=== PATIENT | male | born 1965 | race Caucasian/White ===

== ENCOUNTER 2019-06-02 18:30 | Inpatient (IN) ==
[2019-06-02 19:54] LABS: BASO# 0.03 X1000 (0.0-0.2); BASO% 0.4 % (0.0-0.8); EOS# 0.09 X1000 (0.0-0.7); EOS% 1.2 % (0.0-10.0); HEMATOCRIT 43.3 % (42.0-52.0); HEMOGLOBIN 13.4 g/dL (14.0-18.0); IMM GRAN# 0.02 X1000 (0.0-0.04); IMM GRAN% 0.3 % (0.0-0.5); LYMPH# 1.47 X1000 (1.2-3.4); LYMPH% 19.1 % (20.5-51.1); MCH 28.3 PG (27-31); MCHC 30.9 g/dL (33-37); MCV 91.5 FL (81-99); MONO# 0.62 X1000 (0.11-0.59); MPV 9.8 FL (7.4-10.4); NEUT# 5.48 X1000 (1.4-6.5); PLT 267 X1000 (130-400); RBC 4.73 XMIL (4.7-6.1); RDW 15.2 % (11.5-14.5); WBC 7.71 X1000 (4.8-10.8)
[2019-06-02 19:59] LABS: INR 1.18; PROTIME 15.2 Seconds (11.0-16.0)
[2019-06-02 20:05] LABS: ALB/GLOB RATIO 1.6; ALBUMIN 3.8 g/dL (3.5-5.0); CALCIUM 8.8 mg/dL (8.8-10.2); CREATININE 1.3 mg/dL (0.7-1.2); POTASSIUM 4.3 mmol/L (3.5-5.1); TOTAL BILIRUBIN 0.81 mg/dL (0.20-1.00); TOTAL PROTEIN 6.2 g/dL (6.3-8.3)
--- NOTE | 2019-06-02 20:21 | Diag Imaging Result Doc PS360 ---
EXAM: CHEST-2 VIEWS INDICATION: dyspnea TECHNIQUE: 2 views COMPARISON: 02/24/2019 FINDINGS: The central vasculature is prominent suggesting pulmonary venous congestion. No discrete airspace consolidation can be identified. There is blunting of the posterior costophrenic angle suggesting likely trace effusions. There is at least mild cardiomegaly. IMPRESSION: Mild cardiomegaly and suggestion of pulmonary venous congestion. Electronically signed by Benjamin Grande 06/02/2019 8:19 PM
[2019-06-02 20:33] LABS: CK INDEX 2.5 (0.0-2.5); CK-MB 11.44 ng/mL (0.0-5.0)
[2019-06-02] MEDS ORDERED: LASIX IV ONE (20:41)
--- NOTE | 2019-06-02 20:52 | PROVIDER DOCUMENTATION ---
This chart was entered by Siomara Cantu Scribe, acting as scribe for Daria Bautista CRNP. HPI-Respiratory General - General Chief Complaint: Edema Stated Complaint: SWELLING IN FEET Time Seen by Provider: 06/02/19 18:35 Source: patient Allergies/Adverse Reactions: Patient Allergies Allergy/AdvReac Type Severity Reaction Status Date / Time No Known Allergies Allergy Verified 02/24/19 08:16 Home Medications: Home Medication List Medication Instructions Recorded Confirmed Last Taken Type Hydrocodone/APAP 5 mg/325 mg 1 each PO Q6H PRN PRN #12 tablet 08/19/16 Unknown Rx [[place]-5] Ibuprofen [Motrin] 800 mg PO Q8H PRN PRN #20 tablet 08/19/16 Unknown Rx Omeprazole [Prilosec] 20 mg PO DAILY@0700 #20 capsule 08/19/16 Unknown Rx Clindamycin [Cleocin] 150 mg PO Q6HR #30 cap 04/11/18 Unknown Rx - History of Present Illness-Resp Nature of Presenting Problem: 54 y/o male with history of CHF and COPD presents to the ED with complaint of bilateral lower extremity edema and shortness of breath. The patient states he was admitted to [facility] in March and diagnosed with pneumonia, CHF, and COPD and he states ejection fraction of 20%. He was given a month supply of medications at discharge including antibiotic, steroids, lasix, and inhaler but has been unable to refill these since that time due to living in his truck and no income at this time. He also complains of nausea daily which is chronic and improves with eating and cough with occasional yellow sputum production. Quality of Pain: reports: none Onset/Duration: reports: gradual Timing: reports: getting worse Cough Quality/Degree: reports: productive cough, sputum (yellow) Current Respiratory Medication Therapy: Initiated see nurses note Associated Symptoms: reports: cough, shortness of breath. denies: fever/chills, flu-like symptoms Recently seen or treated by another doctor?: No Review of Systems - Adult - REVIEW OF SYSTEMS - ADULT Constitutional: denies: chills, fever, weight gain Eyes: reports: no symptoms reported Ears, Nose, Mouth & Throat: reports: no symptoms reported Cardiovascular: reports: edema (bilateral). denies: chest pain, palpitations, syncope Respiratory: reports: cough, shortness of breath, other (bilateral edema). denies: hemoptysis Gastrointestinal: denies: diarrhea, nausea, vomiting Genitourinary: reports: no symptoms reported Musculoskeletal: reports: no symptoms reported Integumentary: reports: no symptoms reported Neurological: reports: no symptoms reported Psychiatric: reports: no symptoms reported Endocrine: reports: no symptoms reported Hematologic/Lymphatic: reports: no symptoms reported Allergic/Immunologic: reports: no symptoms reported All Other Systems: Reviewed and Negative Past History - Adult - PAST MEDICAL HISTORY-ADULT Review of Records: reports: Old Records Reviewed, Nursing Assessment Review, Medications Reviewed Major Childhood Illnesses: reports: denies history Cardiovascular: reports: denies history Respiratory: reports: denies history Gastrointestinal: reports: denies history Obstetrical/Gynecological: reports: denies history Genitourinary: reports: denies history Musculoskeletal: reports: denies history Neurological: reports: denies history Endocrine/Immune: reports: denies history Other Conditions: reports: denies history - IMMUNIZATION STATUS Childhood Immunizations: See Nurse Assessment Flu Vaccine: See Nurse Assessment - FAMILY HISTORY Family History: reviewed, not pertinent - SOCIAL HISTORY Smoking: cigarettes, less than 1 pack/day Provider spent 3-5 mins advising pt. on dangers of tobacco.: Discussed manners to quit use, and f/u contacts for add'l counseling. Substance Use: alcohol Alcohol Use Frequency: occasionally Living Situation: other (lives in truck alone in [place]) Physical Exam-General - PHYSICAL EXAM-ADULT Initial Vital Signs Reviewed: Yes - CONSTITUTIONAL General Appearance: alert, no apparent distress - HEAD, EARS, NOSE, MOUTH & THROAT HENMT: normocephalic/atraumatic, moist mucous membranes - NECK Neck: full range of motion, supple - RESPIRATORY Respiratory: normal breath sounds, no respiratory distress, no accessory muscle use, rhonchi (right and left upper lobes), wheezing (bilateral expiratory). negative: crackles - CARDIOVASCULAR Cardiovascular: regular rate, rhythm, no JVD, no murmur - GASTROINTESTINAL (ABDOMEN) Abdominal Exam: normal bowel sounds, non tender, soft. negative: distended, guarding - MUSCULOSKELETAL Extremity: pelvis stable, erythema (bilateral lower extremities), swelling (bilateral lower extremity edema with fluid pockets base of right great toe, right anterolateral ankle, and left anteromedial ankle), tenderness (bilateral lower extremities), other (good distal pulses). negative: deformity, pulse deficit Peripheral Pulses: radial (R): 2+, radial (L): 2+ - SKIN Integumentary: erythema (bilateral lower extremities), tenderness (bilateral lower extremities), other (bilateral lower extremity edema with fluid pockets base of right great toe, right anterolateral ankle, and left anteromedial ankle) . negative: diaphoresis - NEUROLOGIC Neurologic: grossly normal - PSYCHIATRIC Psych/Mental Status: normal mood/affect, normal thought content, normal thought process Progress - PLAN OF CARE/RESULTS Progress/Plan/Lab Results: Vital Signs - 8 hr 06/02/19 18:48 06/02/19 19:15 Temperature 99.0 F 98.6 F Pulse Rate 109 H 108 H Respiratory Rate 20 18 Blood Pressure 127/77 139/103 O2 Sat by Pulse Oximetry 100 99 Laboratory Results - last 24 hr 06/02/19 06/02/19 06/02/19 19:22 19:22 19:22 WBC RBC Hgb Hct MCV MCH MCHC RDW Std Deviation Plt Count MPV Immature Gran % (Auto) Neut % (Auto) Lymph % (Auto) [place] % (Auto) Eos % (Auto) Baso % (Auto) Immature Gran # (Auto) Neut # (Auto) Lymph # (Auto) [place] # (Auto) Eos # (Auto) Baso # (Auto) PT INR D-Dimer, Quantitative Sodium 137 Potassium 4.3 Chloride 101 Carbon Dioxide 25 Anion Gap 11 BUN 17 Creatinine 1.3 H Estimated GFR/1.73 m2 58 BUN/Creatinine Ratio 13 Glucose 70 Calculated Osmolality 274 Calcium 8.8 Total Bilirubin 0.81 AST 74 H ALT 86 H Alkaline Phosphatase 109 Creatine Kinase 456 H Creatine Kinase Index 2.5 CK-MB (CK-2) 11.44 H Troponin T High Sens 51 H Rgj-Q-Nxwdjkbgzoh Pept 2875 H Total Protein 6.2 L Albumin 3.8 Globulin 2.4 Albumin/Globulin Ratio 1.6 06/02/19 06/02/19 19:22 19:22 WBC 7.71 RBC 4.73 Hgb 13.4 L Hct 43.3 MCV 91.5 MCH 28.3 MCHC 30.9 L RDW Std Deviation 15.2 H Plt Count 267 MPV 9.8 Immature Gran % (Auto) 0.3 Neut % (Auto) 71.0 Lymph % (Auto) 19.1 L [place] % (Auto) 8.0 Eos % (Auto) 1.2 Baso % (Auto) 0.4 Immature Gran # (Auto) 0.02 Neut # (Auto) 5.48 Lymph # (Auto) 1.47 [place] # (Auto) 0.62 H Eos # (Auto) 0.09 Baso # (Auto) 0.03 PT 15.2 INR 1.18 D-Dimer, Quantitative 1.90 H Sodium Potassium Chloride Carbon Dioxide Anion Gap BUN Creatinine Estimated GFR/1.73 m2 BUN/Creatinine Ratio Glucose Calculated Osmolality Calcium Total Bilirubin AST ALT Alkaline Phosphatase Creatine Kinase Creatine Kinase Index CK-MB (CK-2) Troponin T High Sens Dxq-C-Rywjmmdylrs Pept Total Protein Albumin Globulin Albumin/Globulin Ratio Orders Category Date Time Status Nursing- Obtain EKG ONCE Care 06/02/19 19:22 Active CHEST-2 VIEWS [RAD] Stat Exams 06/02/19 19:22 Completed CBC WITH DIFF [HEME] Stat Lab 06/02/19 19:22 Completed CK PROFILE [SP CHEM] Stat Lab 06/02/19 19:22 Completed COMPREHENSIVE METABOLIC PANEL [CHEM] Stat Lab 06/02/19 19:22 Completed D-DIMER [COAG] Stat Lab 06/02/19 19:22 Completed PRO B-NATRIURETIC PEPTIDE Stat Lab 06/02/19 19:22 Completed PROTIME WITH INR [COAG] Stat Lab 06/02/19 19:22 Completed TROPONIN T HIGH SENSITIVITY Stat Lab 06/02/19 19:22 Completed Furosemide [Lasix] Med 06/02/19 20:41 Discontinued 40 mg IV NOW ONE EKG [EKG] Stat Ther 06/02/19 19:22 Ordered Result Diagrams: 06/02/19 19:22 06/02/19 19:22 - EKG 1 Time of EKG reading by physician:: 19:37 EKG Read and Signed by:: Yolanda Finley EKG Interpretation (*Must complete 3 of following elements*): Abnormal Rate: 107 Rhythm: sinus tachycardia ST Wave: non-specific ST changes Comments: No STEMI - XRAY 1 XRAY Study: Chest Impression: Abnormal (EXAM: CHEST-2 VIEWS INDICATION: dyspnea TECHNIQUE: 2 views COMPARISON: 02/24/2019 FINDINGS: The central vasculature is prominent suggesting pulmonary venous congestion. No discrete airspace consolidation can be identified. There is blunting of the posterior costophrenic angle suggesting likely trace effusions. There is at least mild cardiomegaly. IMPRESSION: Mild cardiomegaly and suggestion of pulmonary venous congestion. Electronically signed by Benjamin Grande 06/02/2019 8:19 PM) - CONSULTS/PCP/HOSPITALIST Notification #1 *Consult/PCP/Hospitalist*: ERIK Manzanares Hospitalist Time Discussed: 20:49 Consult Disposition: Admit Departure - Departure Date of Disposition Decision: 06/02/19 Time of Disposition Decision: 20:49 DIAGNOSIS: NERY (acute kidney injury) CHF (congestive heart failure) Qualifiers: Heart failure type: unspecified Heart failure chronicity: acute Qualified Code(s): I50.9 - Heart failure, unspecified COPD (chronic obstructive pulmonary disease) Qualifiers: COPD type: unspecified COPD Qualified Code(s): J44.9 - Chronic obstructive pulmonary disease, unspecified Disposition: ADMITTED INPATIENT 09 Certified Medical Emergency: Emergent Condition: Poor Referrals and Follow-Ups: None,PCP [Primary Care Provider] - - Critical Care Note This patient required my direct & personal management of CC.: No Attestation - Physician/ REED Attestation Patient care was provided by Advanced Practice Provider:: Yes Advanced Practice Provider:: Daria Bautista Advanced Practice Provider documentation review:: The Mid-level provider documentation, treatment plan and medical decision making was reviewed by the physician who agrees with all treatment and medical decision making by the MLP. The physician spent face to face time with patient:: No Advanced Practice Provider documentation review:: Supervising physician onsite and consulted in the evaluation and care of this patient. The physician did not have a face to face encounter with the patient. This chart was documented by the indicated scribe, (Siomara Cantu Scribe) and accurately reflects the services I performed and decisions made by me, Daria Bautista CRNP, as attested by the provider's signature.
--- NOTE | 2019-06-02 21:46 | EKG Report ---
Test Performed on : 06/02/2019 7:34:38 PM Test Reason : edema Blood Pressure : / mmHG Vent. Rate : 107 BPM Atrial Rate : 107 BPM P-R Int : 170 ms QRS Dur : 090 ms QT Int : 342 ms P-R-T Axes : 024 052 074 degrees QTc Int : 456 ms Sinus tachycardia. Possible Left atrial enlargement T wave abnormality, consider lateral ischemia Abnormal ECG When compared with ECG of 24-FEB-2019 08:22, T wave inversion more evident in Lateral leads Unconfirmed Result
[2019-06-02] MEDS ORDERED: LOVENOX 1 MG/KG SUBQ ONE (22:19)
[2019-06-02] MEDS ORDERED: LOVENOX SUBQ ONE (22:30)
[2019-06-02] MEDS ORDERED: TYLENOL PO PRN (22:55)
[2019-06-02] MEDS ORDERED: ZOFRAN IV PRN (22:55)
--- NOTE | 2019-06-02 23:15 | HISTORY AND PHYSICAL ---
CHIEF COMPLAINT: Swelling in feet. HISTORY OF PRESENT ILLNESS: This is a 54-year-old male who is homeless, lives in his car. From what I understand, he has COPD and congestive heart failure. He was at [facility] in March and was diagnosed with pneumonia, CHF, COPD. States he has an ejection fraction of 20%. He was given a month's supply of all of his medications at discharge which included antibiotics, steroids, Lasix and inhalers. Since that time he has been living in his truck. He does not have any income or insurance and he has not refilled his medications. He stated that the lower extremity edema really started to increase over the last week so he came into the emergency room to get evaluated. Labs were grossly normal other than a D-dimer of 1.90. A CT angio- and lower extremity ultrasound is pending. He will be admitted for diuresis and other evaluation and treatment. PAST MEDICAL HISTORY: See HPI. PREVIOUS SURGICAL HISTORY: Previous cardiac stenting. SOCIAL HISTORY: Lives in his truck. Smokes 5-6 cigarettes a day. FAMILY HISTORY: Positive for coronary artery disease in first-degree relatives. ALLERGIES: No known drug allergies. HOME MEDICATION: No home medications. However, he was discharged on aspirin 81 mg p.o. daily, Lasix 40 mg p.o. daily, atorvastatin 40 mg p.o. at bedtime, Coreg 3.125 mg p.o. q.12 and omeprazole 20 mg p.o. daily. REVIEW OF SYSTEMS: A 14-point review of systems conducted with the patient. Pertinent positives listed above in the HPI. He also complained of chronic cough with some yellow sputum and nausea which happens almost daily, but usually resolves when he eats. All other systems were reviewed and found to be negative. PHYSICAL EXAMINATION: VITAL SIGNS: Temperature 98.6, pulse 108, respirations 18, blood pressure 139/103, oxygen saturation 99% on room air. GENERAL: Pleasant 54-year-old male lying in the ER stretcher. He is alert and oriented times 3, answers questions appropriately. HEENT: Head is atraumatic, normocephalic. Pupils equal, round, reactive to light. Extraocular eye movement is intact. Sclera is anicteric. Conjunctiva is mildly pale. Oral mucosa is moist. NECK: Supple. No JVD. No hepatojugular reflux. Trachea is midline. No cervical lymphadenopathy. CARDIAC: S1, S2 appreciated. No murmurs, gallops, rubs. LUNGS: Inspiratory and expiratory wheezing. A few scattered crepitations in bilateral bases. Symmetric rise and fall with respirations. ABDOMEN: Soft, nondistended, nontender. Bowel sounds present all 4 quadrants, normoactive. No pulsatile mass. No organomegaly. EXTREMITIES: No clubbing, cyanosis. Three-plus pitting edema bilateral lower extremities mid calf to foot. Two-plus pedal pulses. GENITOURINARY: No bladder distention. Patient voids. Otherwise deferred. NEUROLOGICAL: He is alert and oriented times 3. Cranial nerves 2 through 12 grossly intact. DIAGNOSTIC DATA: Chest x-ray shows mild cardiomegaly with mild pulmonary venous congestion. LABORATORY DATA: WBC 7.71. Hemoglobin 13.4. Hematocrit 43.3. Platelet count 267. D-dimer is 1.90. Sodium 137. Potassium 4.3. Chloride 101. Carbon dioxide 25. BUN 17. Creatinine 1.3. Glucose 70. ASSESSMENT: 1. Congestive heart failure with exacerbation. 2. Chronic obstructive pulmonary disease. 3. Medical noncompliance. 4. Acute kidney injury. PLAN: Admit patient to the medical floor. We will order a CT angio- and lower extremity ultrasounds. We will give 1 mg/kg of Lovenox at this time until those tests can be obtained to rule out DVT. Give Lasix 40 mg IV q.12 hours. DuoNeb treatments q.6. Recheck laboratory data tomorrow morning. Restart his atorvastatin, Coreg, omeprazole and aspirin. Further recommendation per patient clinical course. Dictated by ERIK Galvin for Mari Cortes MD cc: ERIK Galvin MD I performed an independent beside assessment with the CANDY CUTTER MACHINE and discussed the above plan of care with the CANDY CUTTER MACHINE. Ruiz await CTA of chest only because pt has been sleeping for a prolonged period with an equivocal Wells score. Clinically may have DVT,but not quite sure about PE. MTDD
[2019-06-02] MEDS: LIPITOR PO SCH (23:38)
[2019-06-02] MEDS: COREG PO SCH (23:38)
[2019-06-03] MEDS: DUONEB (A & A) INH SCH ×4 (03:34→22:37)
[2019-06-03] MEDS: PRILOSEC PO SCH (06:10)
--- NOTE | 2019-06-03 06:39 | Diag Imaging Result Doc PS360 ---
CT ANGIOGRM PULMONARY ARTERIES - 06/02/2019 INDICATION: elevated d dimer TECHNIQUE: Axial CT images were obtained after administering intravenous contrast. Coronal MIP images were generated. COMPARISON: None FINDINGS: There is no pulmonary embolism. At the right side of the proximal esophagus and extending into the tracheoesophageal groove at the level of the clavicular heads, there is a tiny area of possible soft tissue gas. This measures about 6 mm. Remainder of the esophagus appears normal. There is cardiomegaly. Great vessels are normal. There is a small right pleural effusion. There is trace ascites around the liver. Otherwise upper abdominal images are normal. There is severe COPD. There is interstitial pulmonary edema in the lung bases. There is moderate chronic bronchitis in the lung bases. There are moderate degenerative changes of the spine. No acute or suspicious bony lesion. IMPRESSION: 1. Extremely small pneumomediastinum at the right tracheoesophageal groove at the thoracic inlet. The reason is unclear. 2. Congestive heart failure. Small right pleural effusion. Trace ascites. 3. Severe COPD with chronic bronchitis. This exam was performed using automated exposure control, adjustment of mA or kV according to patient size, and/or use of iterative reconstruction technique Electronically signed by Alex Rai 06/03/2019 6:36 AM
[2019-06-03 07:08] LABS: BASO# 0.02 X1000 (0.0-0.2); BASO% 0.3 % (0.0-0.8); EOS# 0.16 X1000 (0.0-0.7); EOS% 2.5 % (0.0-10.0); HEMATOCRIT 43.4 % (42.0-52.0); HEMOGLOBIN 13.2 g/dL (14.0-18.0); LYMPH# 1.56 X1000 (1.2-3.4); LYMPH% 24.8 % (20.5-51.1); MCHC 30.4 g/dL (33-37); MCV 91.9 FL (81-99); MONO# 0.56 X1000 (0.11-0.59); MONO% 8.9 % (1.7-9.3); MPV 9.8 FL (7.4-10.4); NEUT% 63.5 % (42.2-75.2); PLT 256 X1000 (130-400); RBC 4.72 XMIL (4.7-6.1); RDW 15.3 % (11.5-14.5)
[2019-06-03 07:29] LABS: AGAP 12; AMYLASE 45 U/L (20-200); BUN 16 mg/dL (8-22); CALCIUM 8.8 mg/dL (8.8-10.2); CHLORIDE 102 mmol/L (98-107); COSMO 279; CREATININE 1.2 mg/dL (0.7-1.2); ESTIMATED GFR > 60; GLUCOSE 100 mg/dL (70-104); POTASSIUM 4.1 mmol/L (3.5-5.1); SODIUM 139 mmol/L (136-145); TCO2 25 mmol/L (25-35)
--- NOTE | 2019-06-03 08:42 | Diag Imaging Result Doc PS360 ---
BA SWALLOW-ESOPHAGUS - 06/03/2019 INDICATION: ? Proximal Esophageal perforation TECHNIQUE: Total fluoroscopy time was 13 seconds. 18 images were obtained. COMPARISON: None FINDINGS: The esophagus is normal. No perforation, strictures, or mucosal abnormality. IMPRESSION: Negative exam. Electronically signed by Alex Rai 06/03/2019 8:39 AM
[2019-06-03] MEDS: COREG PO SCH ×2 (11:04→20:25)
[2019-06-03] MEDS: LASIX IV SCH ×2 (11:04→20:25)
--- NOTE | 2019-06-03 14:04 | GENERAL SURGERY CONSULTATION ---
DATE: 06/03/2019 REQUESTING PHYSICIAN: Dr. Edgar. REASON FOR CONSULTATION: Consult concerning pneumomediastinum. HISTORY OF PRESENT ILLNESS: A 54-year-old gentleman who presented with swelling in his feet. He underwent a workup including a CT angiography that showed some pneumomediastinum. Given this, he underwent a barium swallow that did not show any extravasation. He does have a history of congestive heart failure and COPD, but denies any kind of chest pain at this point. I was asked to weigh an opinion. Patient seems to be doing okay at the moment. PAST MEDICAL HISTORY: Includes COPD and congestive heart failure. PAST SURGICAL HISTORY: Includes previous cardiac stenting. SOCIAL HISTORY: Lives in his truck. Current smoker. FAMILY HISTORY: Positive for coronary artery disease. ALLERGIES: None. HOME MEDICATIONS: Reviewed. REVIEW OF SYSTEMS: A full 14 systems were reviewed and are negative except those specified in the HPI. PHYSICAL EXAMINATION: Vital Signs: The patient is currently afebrile. His vital signs are stable. General Examination: No acute distress. Alert and oriented, male. Looks stated age. HEENT: Normocephalic, atraumatic. Pupils equal, round, reactive to light. Mucous membranes moist. Oropharynx benign. Neck: Supple. Trachea midline. Cardiovascular: Regular rate and rhythm. Lungs: Grossly clear. Chest wall without crepitus. Abdomen: Soft, nontender, nondistended. Extremities: Moves all extremities. Neurologic: Grossly intact. Skin: No signs of jaundice. Vascular: All extremities perfused. DIAGNOSTIC DATA: Laboratory reviewed. White blood cell count normal. Imaging reviewed and noted above. ASSESSMENT AND PLAN: A 54-year-old male with pneumomediastinum. Pneumomediastinum. At this time, it does not look like an esophageal injury. He may have had a small bleb that ruptured from his chronic obstructive pulmonary disease but I do not think there is anything for us to do surgically. I will put him on a gastrointestinal soft diet. I appreciate the consult. cc: Harish Murillo MD
[2019-06-03] MEDS: ASPIRIN PO SCH (20:25)
[2019-06-03] MEDS: LIPITOR PO SCH (20:25)
--- NOTE | 2019-06-03 22:31 | PULMONOLOGY CONSULTATION ---
DATE: 06/03/2019 REASON FOR CONSULTATION: Pneumomediastinum. HISTORY OF PRESENT ILLNESS: Mr. Lagunas is a 54-year-old with significant COPD identified on his chest x-ray who presented to the emergency room with increasing shortness of breath and lower extremity edema. The patient continues to smoke. He was afebrile in the emergency room. A chest x-ray revealed mild cardiomegaly and pulmonary venous congestion. A CT scan of the thorax was performed due to elevation in the D-dimer. This revealed small amount air in the superior mediastinum. The patient denies any pain within the chest. PAST MEDICAL HISTORY: 1. Chronic obstructive pulmonary disease. 2. Recent diagnosis of systolic heart failure. 3. Continued tobacco use. SOCIAL HISTORY: Patient lives in his truck per H and P. Continued tobacco use. No alcohol use listed. FAMILY HISTORY: Positive for heart disease. REVIEW OF SYSTEMS: Primarily related to lower extremity edema and shortness of breath. He does have occasional cough with sputum production. PHYSICAL EXAMINATION: General: Reveals a thin white male who appears his stated age in no distress. Vital signs: Blood pressure 112/76, heart rate 100, respiratory rate 16, oxygen saturation 97%. HEENT: Pupils are equal and reactive. Oropharynx is clear. Neck: Supple. No subcutaneous air is identified. Cardiac Exam: S1, S2. Abdomen: Soft. Extremities: Reveal 1 to 2+ peripheral edema. DIAGNOSTIC DATA: CT scan as per HPI. White blood count 6.3, hemoglobin 13.2, platelet count 286,000. Sodium 139, potassium 4.1, chloride 102, bicarbonate 25, BUN 16, creatinine 1.2. Barium swallow with contrast using water-soluble dye reveals no evidence of proximal tracheal injury. IMPRESSION: A 54-year-old with: 1. Severe chronic obstructive pulmonary disease. 2. Cor pulmonale. 3. Systolic heart failure. 4. Small amount of mediastinal air. Etiology for this is not clear. He has not had any difficulty with chewing and swallowing. He does not have any evidence of tracheal injury. He does not have any evidence of esophageal injury. It is possible he has had a coughing event and had a small amount of air in the mediastinum. RECOMMENDATIONS: 1. Continue diuretics as you are doing. 2. Continue to encourage smoking cessation. 3. Consider adding an PAMELA inhibitor given his history. 4. Follow-up scan in 2 days. cc: Jordon Triplett MD
--- NOTE | 2019-06-04 00:29 | PROGRESS NOTE ---
DATE: 06/03/2019 SUBJECTIVE: The patient feels okay. No major complaints. OBJECTIVE: Blood pressure is 112/76, heart rate 100, respiratory rate 16, temperature 98.9 degrees.Cardiovascular: Regular rate and rhythm. Pulmonary: Bilateral breath sounds clear to auscultation. GI: Soft, nontender. Bowel sounds are positive. PROBLEM LIST: 1. Pneumomediastinum which is not felt to be associated with ruptured esophagus, but often possibly ruptured bullae. We will continue to monitor. Surgery and Pulmonary are consulted. 2. Chronic obstructive pulmonary disease exacerbation, which is resolved. 3. Recent heart failure. Continue to monitor. He is compensated. We will start an ARB and follow closely. cc: Mannie Edgar MD
[2019-06-04] MEDS: DUONEB (A & A) INH SCH ×4 (03:38→22:47)
[2019-06-04] MEDS: PRILOSEC PO SCH (06:09)
--- NOTE | 2019-06-04 06:23 | GENERAL SURGERY PROGRESS NOTE ---
DATE: 06/04/2019 The patient seemed to tolerate his diet. He did not have any significant pain with eating from a surgical point of view. I do not think he has any kind of injury that needs any surgical intervention, so will sign off and be available as needed. cc: Harish Murillo MD
--- NOTE | 2019-06-04 07:02 | Extremity Venous Study ---
PROCEDURE NAME: Venous U/S Bilateral Legs - 06/03/2019 REQUESTING PROVIDER: Miley. AGILE PROJECT MANAGER: Addison. INDICATIONS: Swelling and elevated D-dimer. EQUIPMENT: [employer] Vivid E9 ultrasound system with a 9 L-D transducer. FINDINGS: Images of the bilateral lower extremity venous systems were obtained in both sagittal and transverse planes. Doppler was used to evaluate veins for spontaneity, phasicity, respiratory excursion, and digital augmentation. RESULTS: Reflux noted in bilateral common femoral veins with some pulsatility noted to the common femoral veins. This may represent central cardiac issue. No obvious superficial or deep venous thrombosis noted. INTERPRETATION: Pulsatility noted to bilateral common femoral veins with reflux. The pulsatility may represent central cardiac issue and I would recommend handling that clinically. cc: MD Marsahll Foley CRNP
[2019-06-04] MEDS: LASIX IV SCH ×2 (08:44→21:22)
[2019-06-04] MEDS: COREG PO SCH ×2 (08:44→21:22)
[2019-06-04] MEDS: COZAAR PO SCH (08:44)
[2019-06-04] MEDS ORDERED: NICODERM PATCH TD PRN (13:45)
--- NOTE | 2019-06-04 19:07 | PROGRESS NOTE ---
DATE: 06/04/2019 SUBJECTIVE: Breathing is about the same. No major issues. OBJECTIVE: Blood pressure 90/55, heart rate 74, respiratory rate 18, temperature 97.5 degrees, 93% on room air.Cardiovascular: Regular rate and rhythm. Pulmonary: Bilateral breath sounds, clear to auscultation. GI: Soft, nontender, nondistended. Bowel sounds were positive. LABORATORY DATA: White count is I do not have any new white count. TSH is up a little bit. PROBLEM LIST: 1. Pneumomediastinum which is likely related to chronic obstructive pulmonary disease, bullous emphysema. Seems to be stable. 2. Chronic obstructive pulmonary disease exacerbation. He does have some wheezing. He is on some breathing treatments. He is a little hypoxic today, dropped to 88, 89, so I am not sure he is ready to go today. I am going to add a little bit of Solu-Medrol and we will see how he does DISPOSITION: He is homeless. We need to make sure that this hypoxia is transient and not persistent. He was advised on tobacco cessation, but he may be able to go home soon. Repeat his plain films tomorrow and follow. Disposition again, hopefully social work can help with some of his issues. cc: Mannie Edgar MD
--- NOTE | 2019-06-04 19:41 | PULMONOLOGY PROGRESS NOTE ---
DATE: 06/04/2019 SUBJECTIVE: The patient is awake and alert. He reports he feels better. His lower extremity edema is decreasing. He has an excellent appetite. OBJECTIVE: Vital Signs: Blood pressure 97/61, heart rate 102, respiratory rate 18, oxygen saturation 89% on room air. HEENT: Pupils are equal and reactive. Oropharynx clear. Neck: Is supple. Chest: Reveals markedly diminished breath sounds bilaterally. Cardiac exam: S1- S2. Abdomen: Soft. Extremities: Reveal decreasing edema. IMPRESSION: 54-year-old with 1. Severe chronic obstructive pulmonary disease. 2. Cor pulmonale and systolic left heart failure. 3. Asymptomatic pneumomediastinum. 4. Nicotine addiction with ongoing tobacco use. RECOMMENDATIONS: 1. Follow up chest x-ray tomorrow. 2. Anticipate changing to oral diuretics. 3. The patient may require oxygen at discharge, but this may be difficult to arrange. cc: Jordon Triplett MD
[2019-06-04] MEDS: SOLU-MEDROL IV SCH (21:22)
[2019-06-04] MEDS: LIPITOR PO SCH (21:22)
[2019-06-04] MEDS: ASPIRIN PO SCH (21:22)
[2019-06-05] MEDS: DUONEB (A & A) INH SCH ×2 (04:29→07:52)
[2019-06-05] MEDS: PRILOSEC PO SCH (06:29)
[2019-06-05] MEDS: SOLU-MEDROL IV SCH (06:29)
[2019-06-05 06:58] LABS: BASO# 0.01 X1000 (0.0-0.2); BASO% 0.2 % (0.0-0.8); HEMATOCRIT 47.6 % (42.0-52.0); HEMOGLOBIN 14.7 g/dL (14.0-18.0); LYMPH# 0.53 X1000 (1.2-3.4); LYMPH% 9.7 % (20.5-51.1); MCH 27.9 PG (27-31); MCHC 30.9 g/dL (33-37); MCV 90.5 FL (81-99); MONO# 0.14 X1000 (0.11-0.59); MONO% 2.6 % (1.7-9.3); MPV 9.8 FL (7.4-10.4); NEUT# 4.78 X1000 (1.4-6.5); NEUT% 87.5 % (42.2-75.2); PLT 324 X1000 (130-400); RBC 5.26 XMIL (4.7-6.1); WBC 5.46 X1000 (4.8-10.8)
[2019-06-05 07:25] LABS: CALCIUM 9.2 mg/dL (8.8-10.2); CREATININE 1.3 mg/dL (0.7-1.2); POTASSIUM 4.4 mmol/L (3.5-5.1)
[2019-06-05 07:50] LABS: LYMPHS 16 % (21-51); MONO 6 % (1-9); SEGS 78 % (42-75)
[2019-06-05] MEDS: COREG PO SCH (08:51)
[2019-06-05] MEDS: COZAAR PO SCH (08:51)
[2019-06-05] MEDS: LASIX IV SCH (08:51)
--- NOTE | 2019-06-05 09:16 | Diag Imaging Result Doc PS360 ---
EXAM: CHEST-2 VIEWS HISTORY: hypoxia TECHNIQUE: Two views COMPARISON: None. FINDINGS: The lungs are hyperexpanded. The heart is not enlarged. The vessels are small. There are increased markings in the right costophrenic angle. This is likely scarring or atelectasis. No consolidation. No pleural effusions. Nodule in the lower right lung could be a nipple shadow or granuloma. IMPRESSION: Emphysema Electronically signed by Simeon Carias 06/05/2019 9:13 AM
[2019-06-05 12:06] VITALS: BP 115/78
--- NOTE | 2019-06-05 13:27 | DISCHARGE SUMMARY ---
ADMISSION DATE: 06/02/2019 DISCHARGE DATE: 06/05/2019 DISCHARGE DIAGNOSES: 1. Chronic obstructive pulmonary disease exacerbation. 2. Acute on chronic systolic congestive heart failure. 3. Acute hypoxic respiratory failure. 4. Chronic kidney disease 3. 5. Tobacco abuse. 6. Pneumomediastinum. 7. Homelessness. HOSPITAL COURSE: The patient presented with lower extremity edema and progressive dyspnea. He had recently been in the [facility] and diagnosed with systolic congestive heart failure, pneumonia, and chronic obstructive pulmonary disease. He took his medications initially but did not refill any of them after they run out. On initial evaluation, he was found to have acute on chronic congestive heart failure, chronic obstructive pulmonary disease exacerbation and, and pneumomediastinum, which was eventually favored to be the result of severe emphysema, and blood rupturing. He was worked up for an esophageal rupture, that was all negative. He was treated conservatively with diuresis, steroids and nebulizers and improved. He was eventually able to be weaned off oxygen and was ambulating well without difficulty. Eating and drinking well. He was transitioned to oral diuresis and oral steroids and discharged. Strongly recommended patient follow up with Cardiology. DISCHARGE MEDICATIONS: 1. Atorvastatin 40 mg p.o. at bedtime, Coreg 3.125 mg p.o. b.i.d., aspirin 81 mg at bedtime, losartan 25 mg p.o. daily, Lasix 40 mg p.o. daily. 2. Medrol Dosepak as directed, nicotine patch 21 mg daily, omeprazole 20 mg p.o. daily. 3. Albuterol inhaler 2 puffs inhaled q.6 hours as needed. FOLLOWUP AND PLAN: The patient is discharged. Patient to follow up with PCP and Cardiology. Patient given prescriptions for all the medications he is supposed to be on. Greater than 30 minutes spent arranging discharge and counseling patient.
== END 2019-06-05 17:41 | disposition home or self-care (01) | DRG 190 ==
LOC: ED 18:30 → SUATTDRO 22:33 → 3N 22:33
PROVIDERS: ATTEND Internal Medicine